=== PATIENT | male | born 1945 | race Caucasian/White ===

== ENCOUNTER → 2017-10-13 | Outpatient (CLI) | payer MEDICARE, BC ==
[2017-10-13 12:23] LABS: BASO % 0.6 % (0.0-1.0); EOS # 0.1 10^3/uL (0.0-0.50); EOS % 2.9 % (0.0-3.0); HEMATOCRIT 43.8 % (42.0-52.0); HEMOGLOBIN 14.3 g/dl (13.5-17.5); LYMPH # 1.4 10^3/uL (1.5-4.5); LYMPH % 29.1 % (24.0-44.0); MEAN CORPUSCULAR HGB CONC 32.6 g/dl (32.0-36.5); MEAN CORPUSCULAR VOLUME 88.8 fl (80.0-96.0); MONO # 0.4 10^3/uL (0.0-0.8); MONO % 8.8 % (0.0-5.0); NEUTROPHILS # 2.9 10^3/uL (1.8-7.7); NEUTROPHILS % 58.6 % (36.0-66.0); PLATELET COUNT, AUTOMATED 208 10^3/uL (150-450); RED BLOOD COUNT 4.93 10^6/uL (4.30-6.10); RED CELL DISTRIBUTION WIDTH 13.4 % (11.5-14.5); WHITE BLOOD COUNT 4.9 10^3/uL (4.0-10.0)
[2017-10-13 13:03] LABS: ALBUMIN 3.6 GM/DL (3.2-5.2); ALKALINE PHOSPHATASE 72 U/L (45-117); ALT/SGPT 63 U/L (12-78); ANION GAP 9 MEQ/L (8-16); AST/SGOT 38 U/L (7-37); BILIRUBIN,TOTAL 0.7 MG/DL (0.2-1.0); BLOOD UREA NITROGEN 14 MG/DL (7-18); CALCIUM LEVEL 8.9 MG/DL (8.8-10.2); CARBON DIOXIDE LEVEL 27 MEQ/L (21-32); CHLORIDE LEVEL 105 MEQ/L (98-107); CREATININE FOR GFR 1.05 MG/DL (0.70-1.30); GLOMERULAR FILTRATION RATE > 60.0 (>42); GLUCOSE, FASTING 68 MG/DL (70-100); POTASSIUM SERUM 4.5 MEQ/L (3.5-5.1); SODIUM LEVEL 141 MEQ/L (136-145); TOTAL PROTEIN 6.6 GM/DL (6.4-8.2)
[2017-10-15 08:06] LABS: Lyme Disease IgG/IgM Antibodie <0.91 ISR (0.00-0.90); Lyme Disease IgM Ab Quantitati <0.80 index (0.00-0.79)
== END ==
LOC: M LAB 10:51
DX: L03.116 Cellulitis of left lower limb (principal); M79.605 Pain in left leg
CPT/HCPCS: 93971

== ENCOUNTER → 2017-11-11 | Outpatient (CLI) | payer MEDICARE ==
[2017-11-11 20:10] LABS: PROSTATIC SPECIFIC AG MONITOR 8.04 NG/ML (< 4.0)
== END ==
LOC: M WUC 14:23
DX: R97.20 Elevated prostate specific antigen [PSA] (principal)
CPT/HCPCS: 84153

== ENCOUNTER 2018-11-22 15:02 | Emergency (ER) | payer MEDICARE, BC ==
[~2018-11-22] VITALS: Ht 177.8 cm; Wt 101.8 kg
[2018-11-22 15:04] VITALS: BP 140/76
[2018-11-22] MEDS ORDERED: CIPR-250 PO (16:08)
[2018-11-22] MEDS ORDERED: CIPROFLOXACIN 250 MG TAB PO ONE (16:15)
== END 2018-11-22 16:57 | disposition home or self-care (01) ==
LOC: M ED 15:02
DX: N30.00 Acute cystitis without hematuria (principal); E11.9 Type 2 diabetes mellitus without complications; Z72.0 Tobacco use; Z79.82 Long term (current) use of aspirin; Z79.84 Long term (current) use of oral hypoglycemic drugs; Z79.899 Other long term (current) drug therapy; Z88.8 Allergy status to other drugs, medicaments and biological substances

== ENCOUNTER 2018-12-09 22:38 | Emergency (ER) | payer MEDICARE, BC ==
[~2018-12-09] VITALS: Ht 177.8 cm; Wt 102.3 kg
[~2018-12-09 22:38] MED LIST: CIPR-250 PO
[2018-12-09] MEDS ORDERED: ATOR40TA75 PO (22:51)
[2018-12-09] MEDS ORDERED: GNP250TA9 PO (22:51)
[2018-12-09] MEDS ORDERED: DOXE100CA PO (22:51)
[2018-12-09] MEDS ORDERED: VICT18IN2 SQ (22:51)
[2018-12-09] MEDS ORDERED: ASPI81CH33 PO (22:51)
[2018-12-09] MEDS ORDERED: LOSA50TA88 PO (22:51)
[2018-12-09] MEDS ORDERED: SITA50TAB PO (22:51)
[2018-12-09] MEDS ORDERED: PHEN-239 PO (22:51)
[2018-12-09] MEDS ORDERED: METF-839 PO (22:51)
[2018-12-09] MEDS ORDERED: OMEP-218 PO (22:51)
[2018-12-10 00:25] LABS: CALCIUM LEVEL 9.3 MG/DL (8.8-10.2); CREATININE FOR GFR 1.31 MG/DL (0.70-1.30); GLOMERULAR FILTRATION RATE 56.8 (>42); POTASSIUM SERUM 4.3 MEQ/L (3.5-5.1)
[2018-12-10] MEDS ORDERED: PHENAZOPYRIDINE 100 MG TAB PO ONE (00:30)
[2018-12-10 00:44] LABS: BASO % 0.5 % (0.0-1.0); EOS # 0.2 10^3/uL (0.0-0.50); EOS % 2.9 % (0.0-3.0); HEMOGLOBIN 13.3 g/dl (13.5-17.5); LYMPH # 1.4 10^3/uL (1.5-4.5); LYMPH % 17.6 % (24.0-44.0); MEAN CORPUSCULAR HEMOGLOBIN 28.7 pg (27.0-33.0); MEAN CORPUSCULAR HGB CONC 33.3 g/dl (32.0-36.5); MEAN CORPUSCULAR VOLUME 86.2 fl (80.0-96.0); MONO # 0.6 10^3/uL (0.0-0.8); MONO % 7.2 % (0.0-5.0); NEUTROPHILS # 5.8 10^3/uL (1.8-7.7); NEUTROPHILS % 71.6 % (36.0-66.0); PLATELET COUNT, AUTOMATED 261 10^3/uL (150-450); RED BLOOD COUNT 4.64 10^6/uL (4.30-6.10); WHITE BLOOD COUNT 8.2 10^3/uL (4.0-10.0)
[2018-12-10] MEDS ORDERED: NEOSPORIN OINT 0.9 GM PKT (FLOOR STOCK) As Ordered ONE (01:06)
[2018-12-10] MEDS ORDERED: METAL LOCK LOOP XX ONE (01:07)
--- NOTE | 2018-12-10 01:48 | REPVR ---
EXAM: CT Abdomen and Pelvis Without Contrast EXAM DATE/TIME: 12/10/18 (12:43am) CLINICAL HISTORY: 73 year old male. Possible obstruction. TECHNIQUE: Imaging protocol: Axial computed tomography images of the abdomen and pelvis without contrast. Coronal and sagittal reformatted images were created and reviewed. Radiation optimization: All CT scans at this facility use at least one of these dose optimization techniques: automated exposure control; mA and/or kV adjustment per patient size (includes targeted exams where dose is matched to clinical indication); or iterative reconstruction. COMPARISON: No relevant prior studies available. FINDINGS: Lower lung aguilar: Elevation of the right hemidiaphragm. No pleural effusions. Liver: Normal. solid No mass. Gallbladder and bile ducts: Normal. No calcified stones. No ductal dilation. Pancreas: No ductal dilatation. Fatty replacement of the pancreas. Spleen: Normal. No splenomegaly. Adrenals: Normal. No mass. Kidneys and ureters: No hydronephrosis. Bilateral renal cysts. Stomach and bowel: Distended stomach, filled with food debris. No bowel obstruction. No mucosal thickening. Appendix: No evidence of appendicitis. Intraperitoneal space: Normal. No free air. No significant fluid collection. Vasculature: Normal. No abdominal aortic aneurysm. Lymph nodes: Normal. No enlarged lymph nodes. Bladder: Unremarkable as visualized. Reproductive: Unremarkable as visualized. Bones/joints: No acute fracture nor dislocation. Degenerative changes in the lower lumbar spine. Soft tissues: Unremarkable. IMPRESSION: No acute findings. No acute bowel pathology. No definite bowel obstruction. Distended stomach, filled with food debris. Electronically signed by: Marni Myers On 12/10/2018 01:47:35 AM
[2018-12-10 01:52] VITALS: BP 118/67
[2018-12-10] MEDS ORDERED: FLUC200T2 PO (02:03)
[2018-12-10] MEDS ORDERED: PYRI1TAB5 PO (02:03)
== END 2018-12-10 02:13 | disposition home or self-care (01) ==
LOC: M ED 22:38
DX: B37.41 Candidal cystitis and urethritis (principal); N28.1 Cyst of kidney, acquired; E11.9 Type 2 diabetes mellitus without complications; I10 Essential (primary) hypertension; E78.5 Hyperlipidemia, unspecified; K21.9 Gastro-esophageal reflux disease without esophagitis; Z88.1 Allergy status to other antibiotic agents; Z79.899 Other long term (current) drug therapy; Z79.84 Long term (current) use of oral hypoglycemic drugs; Z79.82 Long term (current) use of aspirin

== ENCOUNTER → 2018-12-15 | Outpatient (REF) | payer MEDICARE, BC ==
[~2018-12-15] MED LIST changes: +ASPI81CH33 PO; +ATOR40TA75 PO; +DOXE100CA PO; +FLUC200T2 PO; +GNP250TA9 PO; +LOSA50TA88 PO; +METF-839 PO; +OMEP-218 PO; +PHEN-239 PO; +PYRI1TAB5 PO; +SITA50TAB PO; +VICT18IN2 SQ
== END ==
LOC: M LAB REF 13:34
PROVIDERS: ATTEND Urology
DX: N41.0 Acute prostatitis (principal); B49 Unspecified mycosis
CPT/HCPCS: 51798; 81002; 87102; G0463

== ENCOUNTER → 2019-01-05 | Outpatient (REF) | payer MEDICARE, BC ==
[2019-01-05 18:07] LABS: APPEARANCE, URINE CLEAR (CLEAR); BACTERIA, URINE AUTO NEGATIVE (NEGATIVE); BILIRUBIN, URINE AUTO NEGATIVE (NEGATIVE); BLOOD, URINE BLOOD NEGATIVE (NEGATIVE); COLOR, URINE YELLOW (YELLOW); GLUCOSE, URINE (UA) AUTO 1+ mg/dL (NEGATIVE); KETONE, URINE AUTO NEGATIVE (NEGATIVE); LEUKOCYTE ESTERASE, URINE AUTO NEGATIVE (NEGATIVE); MUCUS, URINE SMALL (NEGATIVE); NITRITE, URINE AUTO NEGATIVE (NEGATIVE); PROTEIN, URINE AUTO NEGATIVE (NEGATIVE); RBC, URINE AUTO 0 /HPF (0-3); SPECIFIC GRAVITY URINE AUTO 1.016 (1.002-1.035); SQUAMOUS EPITHELIAL CELL UR AU 0 /HPF (0-6); UROBILINOGEN, URINE AUTO 0.2 mg/dL (0.0-2.0); WBC, URINE AUTO 1 /HPF (0-3)
== END ==
LOC: M SMT 17:23
PROVIDERS: ATTEND Nurse Practitioner Family
DX: N39.0 Urinary tract infection, site not specified (principal)
CPT/HCPCS: 81001; 87086; G0463

== ENCOUNTER → 2019-09-28 | Outpatient (CLI) | payer MEDICARE, BC ==
--- NOTE | 2019-10-06 13:29 | RADONC ---
RADIATION ONCOLOGY CONSULTATION NOTE DATE OF SERVICE: 09/28/2019 This is a telemedicine visit. The patient was informed of the risks including security breech, technological failure, inability to perform a comprehensive physical exam which could delay or prevent an accurate diagnosis, and potential complications from treatment decisions rendered over a telemedicine platform. The patient understands and consented to the use of telehealth services. Phone only. CHART NUMBER: [id number]. DIAGNOSIS: Prostate cancer. STAGE: IIIA, T2c, N0, M0, Jina score 7 (3-4), grade group II, initial PSA 22.73. ECOG PERFORMANCE STATUS: 0. CONSULTATION NOTE: Mr. Paulino is a very pleasant 74-year-old white male with the diagnosis of what appears to be a stage IIIA, T2c, N0, M0 moderate to poorly differentiated Clearfield score 7 (3-4), grade group II adenocarcinoma of the prostate with a PSA level of 22.73 who is presenting to us today status post 3 months of Lupron injection therapy for consideration of definitive external beam radiation therapy with IMRT/IGRT. HISTORY OF PRESENT ILLNESS: The patient has a long history of urethral strictures and recurrent urinary tract infections for which he self-catheterizes routinely. In November of 2015, the patient had an initial PSA level 5.35. By August of 2017, it had risen to 13. On 02/09/2019, the PSA had jumped to 22.73. On 04/05/2019, the patient underwent prostatic needle biopsy, and pathology revealed a Clearfield score 7 (3-4) involving both sides of the prostate. He initiated Lupron injections and is now presenting to us for discussion of definitive external beam radiation therapy with IMRT/IGRT. ALLERGIES: The patient is allergic to CANAGLIFLOZIN. PAST MEDICAL HISTORY: The patient's past medical history is positive for anal fissures, arthritis, asthma, benign neoplasm of the colon in 03/2008, bilateral renal cysts, cataract of the right eye, colon polyps, depression, deviated nasal septum, diabetes, diverticulosis, erectile dysfunction, GERD, hiatal hernia, hypercholesterolemia, acute esophagitis in 2009, hypertension, iron-deficiency anemia, lumbago, pancreatic atrophy, presbyopia, pulmonary fibrosis, rotator cuff tendonitis, sleep apnea, TIA, urinary retention with self-catheterization, valvular disease, and B12 deficiency. In addition, the patient has a history of back surgery, removal of benign lipomas of the thigh, bilateral rotator cuff surgery, right endarterectomy on 05/16/1999. SOCIAL HISTORY: The patient had smoked 1/2 pack of cigarettes per day for 10 years. He quit 48 years ago. He drinks alcohol almost daily. REVIEW OF SYSTEMS: The patient's review of systems is positive for some hearing loss, as well as shortness of breath. It is also positive for the need for self-catheterization. It is otherwise noncontributory. He denies nausea, vomiting, fevers, chills, night sweats, diplopia, headaches, anxiety or depression, anorexia, weight loss, visual disturbances, chest pain, urinary or bowel difficulties, bone pain, or neurological problems. PHYSICAL EXAMINATION: Physical examination was deferred, as this was a telephone consultation per C[facility]-[address] scan of the abdomen and pelvis was undertaken on 05/25/2018 and showed no evidence of pelvic lymphadenopathy. A bone scan was done on 05/25/2019 and showed no evidence of metastatic disease. Medical Necessity: IMRT/IGRT is clinically indicated for the highly conformal dose planning required. The target volume is in close proximity to critical structures, such as the rectum, bladder, small bowel and femoral heads. The volume of interest must be covered with narrow margins to adequately protect immediately adjacent structures. The plan requires interpretation of complex testing such as CT localization. As noted above special planning (IMRT) and localizing (IGRT) is required and essential to maximally protect sensitive normal tissue structures which cannot be accomplished using conventional 3-dimensional planning. ASSESSMENT: I believe Mr. Paulino is a candidate for external beam radiation therapy, and I have so informed him. I have discussed with the patient in detail the potential benefits, as well as possible acute and chronic sequelae, of external beam radiation therapy. We discussed the logistics of treatment planning, simulation, and subsequent fractionated daily radiation treatments. The patient has not yet had his fiducial markers placed. I am, therefore, referring him to urology for placement of fiducial markers. Once the fiducial markers are placed, we will be seeing him for simulation and initiation of treatment planning approximately 2 weeks later to allow for stabilization of those markers. Radiation will begin subsequently. I discussed the possibility of him being treated when he returns to [place] sees only a temporary resident of this region. He will be here until some time in January and does wish to undergo the therapy here if possible. We also discussed alternatives to this treatment. Thank you for allowing us to participate in the care of this very pleasant gentleman. If I could be of any further assistance or provide you with any information, please free to contact me at any time. Sincerely yours, Walker Licea cc: MD Ernesto Maza MD MTDD
== END ==
LOC: M ONCR 09:15
PROVIDERS: ATTEND Radiology Radiation Oncology
DX: C61 Malignant neoplasm of prostate (principal)

== ENCOUNTER → 2019-10-12 | Outpatient (CLI) | payer MEDICARE, BC ==
--- NOTE | 2019-10-12 11:46 | REPPI ---
TRANSRECTAL PROSTATE SONOGRAPHY: Sonographic guidance. HISTORY: Prostate cancer. FINDINGS: Transrectal prostate sonographic guidance is provided to Dr. Menezes who performed fiducial marker placement procedure. Electronically Signed by Paxton Garcia MD 10/12/2019 12:29 P
== END ==
LOC: M SMT PRO 09:00
PROVIDERS: ATTEND Urology
DX: C61 Malignant neoplasm of prostate (principal)

== ENCOUNTER → 2019-10-15 | Outpatient (REF) | payer MEDICARE, BC ==
[2019-10-15 17:31] LABS: APPEARANCE, URINE HAZY (CLEAR); BACTERIA, URINE AUTO 2+ (NEGATIVE); BILIRUBIN, URINE AUTO NEGATIVE (NEGATIVE); BLOOD, URINE BLOOD 1+ (NEGATIVE); COLOR, URINE YELLOW (YELLOW); GLUCOSE, URINE (UA) AUTO 2+ mg/dL (NEGATIVE); KETONE, URINE AUTO NEGATIVE (NEGATIVE); LEUKOCYTE ESTERASE, URINE AUTO 3+ (NEGATIVE); MUCUS, URINE SMALL (NEGATIVE); NITRITE, URINE AUTO NEGATIVE (NEGATIVE); PROTEIN, URINE AUTO NEGATIVE (NEGATIVE); RBC, URINE AUTO 3 /HPF (0-3); SPECIFIC GRAVITY URINE AUTO 1.011 (1.002-1.035); SQUAMOUS EPITHELIAL CELL UR AU 0 /HPF (0-6); UROBILINOGEN, URINE AUTO 0.2 mg/dL (0.0-2.0); WBC, URINE AUTO TNTC /HPF (0-3)
== END ==
LOC: M SMT 16:26
PROVIDERS: ATTEND Nurse Practitioner Family
DX: N39.0 Urinary tract infection, site not specified (principal)

== ENCOUNTER → 2019-10-26 | Outpatient (RCR) | payer BC, MEDICARE ==
[2019-10-26 11:55] LABS: HEMATOCRIT 39.1 % (42.0-52.0); MEAN CORPUSCULAR HEMOGLOBIN 30.4 pg (27.0-33.0); MEAN CORPUSCULAR HGB CONC 33.2 g/dl (32.0-36.5); MEAN CORPUSCULAR VOLUME 91.4 fl (80.0-96.0); PLATELET COUNT, AUTOMATED 260 10^3/uL (150-450); RED BLOOD COUNT 4.28 10^6/uL (4.30-6.10); WHITE BLOOD COUNT 4.8 10^3/uL (4.0-10.0)
== END ==
LOC: M ONCR 10:42
PROVIDERS: ATTEND Radiology Radiation Oncology
DX: C61 Malignant neoplasm of prostate (principal); Z79.899 Other long term (current) drug therapy

== ENCOUNTER 2019-11-18 10:29 | Outpatient (RCR) | payer MEDICARE, BC ==
--- NOTE | 2019-11-15 17:19 | RADONC ---
RADIATION ONCOLOGY PROGRESS NOTE DATE: 11/15/2019 CHART NUMBER: [id number] PROGRESS NOTE: Mr. Paulino underwent his first fraction of radiation today to his prostate. It was tolerated without difficulty or discomfort. REVIEW OF SYSTEMS: The patient's review of systems is noncontributory. Denies nausea, vomiting, fevers, chills, night sweats, diplopia, headaches, anxiety or depression, anorexia, weight loss, visual disturbances, chest pain, urinary or bowel difficulties, bone pain, or neurological problems. PHYSICAL EXAMINATION: The patient's physical exam clearly showed no evidence of radiation change present since this was first fraction. The remainder of his physical exam remains unchanged. Mr. Paulino tolerated his first fraction without difficulty and radiation will continue as scheduled.
== END 2019-11-26 ==
LOC: M ONCR 10:29
PROVIDERS: ATTEND Radiology Radiation Oncology
DX: C61 Malignant neoplasm of prostate (principal)